=== PATIENT | male | born 1950 | race Caucasian/White ===

== ENCOUNTER 2021-03-04 10:15 | Outpatient (CLI) | payer MEDICARE, SELFPAY ==
--- NOTE | ~2021-03-04 | XR_ITS ---
EXAMINATION: XR wrist RT min 3V, XR hand RT min 3V EXAM DATE: 03/04/2021 10:33 INDICATION: Right hand, wrist arthritis, pain. TECHNIQUE: Right hand frontal, lateral and oblique projections obtained and reviewed. Right wrist fro ntal, frontal with ulnar deviation, oblique and lateral projections obtained and reviewed. There is no prior study for comparison. FINDINGS: Right metacarpal bones are unremarkable. Right wrist scapholunate joint space is maintain ed. There is cartilage radiocarpal joint calcification along the radiocarpal joint, chondrocalcinosis . Chondrocalcinosis can be an age related finding, but with other possible etiologies including CPPD, parathyroid disorders, hemochromatosis, gout. There is moderate radiocarpal, mild triscaphe primary osteoarthritis. There is moderate 2nd and 3rd distal interphalangeal, mild to moderate 3rd metacarpophalangeal primary osteoarthritis. There are no bony erosions identified. There are no acute fractures identified. Tiny metallic density foreign bod y near the 1st metacarpophalangeal joint. IMPRESSION: 1. Polyarticular right hand, wrist osteoarthritis, most advanced at radiocarpal, 2nd and 3rd distal interphalangeal joints. 2. Chondrocalcinosis. Reviewed, dictated and finalized at location A. [employer]ING TE[employer]ER IMPRESSION: 1. Polyarticular right hand, wrist osteoarthritis, most advanced at radiocarpa l, 2nd and 3rd distal interphalangeal joints. 2. Chondrocalcinosis.
== END 2021-03-04 10:16 | disposition home or self-care (01) ==
LOC: ANHIMG 10:18
PROVIDERS: PCP Family Medicine; Visit Provider Plastic Surgery
DX: M19.041 Primary osteoarthritis, right hand (principal); M19.031 Primary osteoarthritis, right wrist
CPT/HCPCS: 73110; 73130

== ENCOUNTER 2021-08-10 02:15 | Day surgery (SDC) | payer MEDICARE, SELFPAY ==
--- NOTE | 2021-08-08 13:08 | PC.NURSE ---
Report to the Outpatient Waiting Room, entrance under the green pavilion located off [facility], at time _0600 on date __08/10/21 . OR Time: _729 . - You and your visitor will be asked a series of questions to screen for COVID 19 for your protection. - Only one visitor is allowed at this time. - The patient visitor is requested to leave or wait in car when not with patient. - A mask is required within the hospital. Patients may have clear liquids (water, carbonated beverages, clear teas, apple juice) until 3 hours prior to surgery with a maximum of 20 ounces. - No food from midnight until time of surgery - Infants may have breast milk until 4 hours before surgery, infant formula 6 hours prior to surgery. - Children will be allowed to drink immediately following surgery. If applicable, please bring a bottle or sippy cup to assist with drinking. Juice, water, soda, and popsicles are readily available. For infants on formula, please bring formula the day of surgery. Pacifiers are allowed. Take the following medications with a SIP of water the morning of surgery: __AMLODIPINE Medications to discontinue per physician ALL VITAMINS AND SUPPLEMENTS 3 DAYS PRE OP Date to take last dose____08/07/21 Please no make-up, nail syriac, hairspray, perfume, deodorant, or body powder the day of surgery. No jewelry (including any body piercings) or valuables the day of surgery, leave them at home. Please take a shower or bath the night before, or the morning of, surgery with an antibacterial soap. Wear comfortable, loose fitting clothing. Children are encouraged to wear pajamas. - Jewelry must be removed prior to entering the operating room. Rings and piercings that are not removed may be cut off. - The hospital will not accept responsibility for valuables. - Please leave all valuables, including medications, at home the day of surgery. If you are going home after surgery, a licensed sprinkling truck driver must drive you home. - NO public transportation without another adult. - We recommend that an adult stay with you for 24 hours following discharge. - We also recommend that you do not drive, make important decision, drink alcoholic beverages, or take any drugs that were not prescribed by your health care provider for at least 24 hours after your discharge time. For Pediatric surgeries, we recommend two adults accompany the child home (only one inside the building at this time). Follow any additional instructions given to you from your surgeon. If you or anyone in your household have experienced Covid symptoms in the past week, please notify your surgeon or the nurse liaison at the phone number below for possible testing. Telephone instructions given to _PATIENT and asked if any additional questions and then verbalized understanding. Patient advised to call surgeon office or pre surgery nurse liaison [phone] if any additional questions.
[2021-08-08 13:13] VITALS: BMI 28.7
--- NOTE | 2021-08-09 09:25 | WPDANESEPPF ---
Anes - Initial Pre Proc Eval Procedure: Operation Date: 08/10/21 07:30 Proposed Procedures p Excision Subcutaneous Mass Right Radial Wrist - Bg Hummel MD Date/Time: 08/09/21 09:25 Surgeon: Bg Hummel MD Pre Op Diagnosis: sub q mass right radial wrist Patient Data Age: 70 Gender: M Height: 1.78 m Weight: 90.75 kg Allergies Allergy/AdvReac Type Severity Reaction Status Date / Time No Known Allergies Allergy Verified 08/10/21 06:23 Home Medications Medication Instructions Recorded Confirmed Type amlodipine 5 mg PO DAILY 08/08/21 08/10/21 History glimepiride 2 mg PO DAILY 08/08/21 08/10/21 History hydrochlorothiazide 12.5 mg PO DAILY 08/08/21 08/10/21 History irbesartan 150 mg PO DAILY 08/08/21 08/10/21 History magnesium 250 mg PO DAILY 08/08/21 08/10/21 History meloxicam 7.5 mg PO DAILY 08/08/21 08/10/21 History potassium chloride 10 meq PO DAILY 08/08/21 08/10/21 History sitagliptin-metformin [Janumet] 1 tablet PO BID 08/08/21 08/10/21 History Patient hx anesthesia problems: none Family hx anesthesia problems: none Results Review: All pre-operative results and documents have been reviewed as part of the pre-operative evaluation. [facility] Past Medical History Medical History (Updated 08/09/21 @ 09:26 by Miguel Resendiz MD) Diabetes HTN (hypertension) Overweight (BMI 25.0-29.9) Social History Social History Smoking status: Never smoker Alcohol intake: current Drinks per week: 42 Alcohol use details: R[employer]KE 6-7 PER DAY Living arrangements: with family Spiritual care concerns: No Anes - Eval Final PreProcedure Day of Procedure 08/09/21 09:25 Patient weight: overweight Heart: regular rate and rhythm Lungs: clear to auscultation and normal air movement Airway: Mallampati scale class II Neurological: alert and oriented Last oral intake: >/= 8 hours ASA classification: III Emergent: no Anesthetic plan: proceed Anesthesia type and monitoring: general GIVS and LMA Results Review: All pre-operative results and documents have been reviewed as part of the pre-operative evaluation. Informed Consent: The patient's anesthetic plan and its attendant risks and benefits were discussed with the patient/family/POA. Questions were solicited and answers provided to the satisfaction of the patient/family/POA.
[2021-08-10 06:29] VITALS: BP 164/86; PULSE 71; RESP 18; TEMP 36.2; O2SAT 100; BMI 28.3
[2021-08-10] MEDS: LACTATED RINGERS 1,000 ML 30 ML IV CONT ×2 (06:49→09:18)
[2021-08-10 07:06] LABS: Anion Gap 14 mmol/L (8-16); Blood Urea Nitrogen 26 mg/dL (9-20); Calcium 9.6 mg/dL (8.4-10.2); Carbon Dioxide 24 mmol/L (22-30); Chloride 99 mmol/L (98-107); Estimated CRCL calculation 54 ml/min; Estimated Glomerular Filt Rate 60; Glucose 147 mg/dL (65-110); Potassium 4.1 mmol/L (3.4-5.0); Sodium 137 mmol/L (137-145)
--- NOTE | 2021-08-10 07:19 | WPDHPUPDATE1 ---
History and Physical Update Update Date/Time: 08/10/21 07:19 History and Physical has been reviewed, including an updated exam of the patient. There are NO changes in the patient's condition. Risks, benefits, and alternatives have been discussed and questions answered. Patient agrees to proceed with procedure.
--- NOTE | 2021-08-10 08:25 | SUR.OPER ---
Specimen given to Jonelle, PCT at 0816. Specimen received by Judi in pathology
[2021-08-10] MEDS: LIDO 1%/EPINEPHRINE/PF 1:200,000 30 ML VIAL INFILTRATE (09:03)
[2021-08-10] MEDS: BACITRACIN OINTMENT 15 GM TUBE 1 APPLIC TOPICAL (09:04)
[2021-08-10 09:18] VITALS: BP 136/82; PULSE 62; RESP 15; O2SAT 98
[2021-08-10 09:32] LABS: Glucose Point of Care 147 mg/dl (65-105)
[2021-08-10 09:45] VITALS: BP 143/73; PULSE 59; RESP 20
--- NOTE | 2021-08-10 09:45 | W.PM.PROC2 ---
Procedure Note - Detailed Date of Procedure 08/10/21 Pre-op Diagnosis sub q mass right radial wrist Post-op Diagnosis Same Procedure Performed 5 cm excision of 3 cm subcutaneous mass of the right radial wrist with frozen section. Surgeon Bg Hummel MD [employer]ing [employer] Ewa Degroot MAC Findings Thick minimally cellular spherical mass adherent to the radial wrist with small amount of this viscid yellow fluid. Description of Procedure The mass over right radial wrist was marked in the holding area. Patient was taken to the operating room and placed supine on the operating table. Time-out was held confirmed. He was given IV sedation as the right upper extremity was prepped and draped in usual fashion. The site was marked and locally infiltrated with 1% lidocaine with epinephrine. The extremity was elevated and the tourniquet inflated 250 mmHg. The longitudinal incision was made directly over the mass running in the axial orientation. Skin and subcutaneous tissue was divided exposing the surface of this spherical mass. The mass was white . Vessels and nerves were identified traversing the area were carefully dissected and freed from it . The mass itself was a white, firm, fibrous structure. Attached to the surface of the mass as well as cutaneous nerves was a gelatinous poon gelatinous material suggestive of granulation tissue. A portion of that was sent for frozen section. The dissection around the mass was tedious and at the 1 hour point the tourniquet was released. It seemed prudent to know what the mass pathology was before proceeding with the dissection that was somewhat risky to sensory nerves. I wished to know whether all of the tissue needed to be removed or what might be sacrificed eventually if this turned out to be sarcoma. Mass was incised and viscous yellow fluid was identified within but with lots of acellular granular tissue. The romero of the cyst were thick, at least 5 mm. A portion of the contents was sent for frozen section as well. The pathologist was unable to fully determine the nature of this tissue but noted that it was very acellular. He had not found any detail that was consistent with malignancy. I proceeded to remove the mass from the thickened periosteum without exposing bone or ligament structures or tendon of the brachioradialis. The site was wiped free of all fragmented tissue. With the tourniquet released it was clear that traversing vessels were intact. The wound was closed with some interrupted intradermal 4-0 Monocryl sutures over a few patches of Gelfoam. The skin was closed with a running 5 0 nylon. Usual soft bandage was applied and the patient was discharged from the operating room stable condition Estimated Blood Loss 5 Tourniquet Time 60 Drains No Packing No Pathology Yes Complications No immediate complications Condition Stable Disposition Same day
[2021-08-10 10:10] VITALS: BP 154/72; PULSE 51; RESP 20
== END 2021-08-10 10:15 | disposition home or self-care (01) ==
PROVIDERS: PCP Family Medicine; Visit Provider Plastic Surgery
PROC: (CPT 25111; principal; 2021-08-10 07:30)
DX: M67.431 Ganglion, right wrist (principal); I10 Essential (primary) hypertension; E11.9 Type 2 diabetes mellitus without complications; Z79.84 Long term (current) use of oral hypoglycemic drugs
CPT/HCPCS: 25111; 36415; 80048; 82948; 88304; 88305; 88331; A9270; J2704; J3010; J7120